=== PATIENT | male | born 1960 | race Caucasian/White ===

== ENCOUNTER 2021-03-18 08:55 | Outpatient (REF) | payer OTHER, SELFPAY ==
[2021-03-18 11:21] LABS: Glucose Urine UA NEG (NEG); Leukocyte Esterase Urine NEG (NEG); Nitrite Urine NEG (NEG); Specific Gravity - Urine 1.015 (1.005-1.025); Urine Blood NEG (NEG); Urine Ketones NEG (NEG); Urine Protein NEG (NEG-TRACE)
[2021-03-18 11:24] LABS: Appearance Urine CLEAR; Color Urine YELLOW
[2021-03-18 12:10] LABS: Alanine Aminotransferase 44 U/L (0-40); Albumin Level 4.3 g/dL (3.5-5.0); Alkaline Phosphatase 57 U/L (39-117); Anion Gap 14 (12-20); Aspartate Amino Transferase 30 U/L (5-37); Bilirubin Total 0.9 mg/dL (0.0-1.0); Blood Urea Nitrogen 19 mg/dL (9-16); Calcium 9.5 mg/dL (8.4-10.2); Carbon Dioxide 25 mmol/L (22-29); Chloride 105 mmol/L (96-108); Cholesterol 225 mg/dL; Estimated Glomerular Filt Rate > 60; Glucose Fasting 97 mg/dL (60-99); HDL Cholesterol 49 mg/dL; LDL Cholesterol Calculated 146 mg/dl; Sodium 140 mmol/L (135-145); Total Protein 7.1 g/dL (6.5-8.0); Triglycerides 151 mg/dL
[2021-03-18 12:11] LABS: Prostate Specific Antigen Scr 1.16 ng/mL (<0.05-4.0); TSH reflex Free T4 5.54 uIU/mL (0.32-4.0)
[2021-03-18 13:50] LABS: Free T4 (Free Thyroxine) 1.03 ng/dL (0.71-1.85)
== END 2021-03-18 08:56 | disposition home or self-care (01) ==
LOC: HO.HMGCLDS 08:55
PROVIDERS: PCP Nurse Practitioner Family; Visit Provider Nurse Practitioner Family
DX: Z00.00 Encounter for general adult medical examination without abnormal findings (principal); Z12.5 Encounter for screening for malignant neoplasm of prostate
CPT/HCPCS: 36415; 80053; 80061; 81003; 84153; 84439; 84443

== ENCOUNTER 2021-05-05 14:07 | Outpatient (REF) | payer OTHER, SELFPAY ==
--- NOTE | ~2021-05-05 | FL_ITS ---
EXAMINATION: XR BARIUM SWALLOW CLINICAL INFORMATION: Dysphagia. COMPARISON: None TECHNIQUE: A modified barium swallow was performed with lateral fluoroscopy with patient sitting on a stool in the presence of a speech therapist. FINDINGS: Following oral administration of thin barium and in between barium-coated puree, ground chicken, and barium-coated solid food, there is normal oral mastication with propagation of food from the oral cavity through the pharynx into the esophagus without any evidence of obstruction, narrowing or stricture. FLUOROSCOPY TIME: 1.1 minutes DOSE AREA PRODUCT: 10.990 uGy-m2 (microgray-meter squared) FL/FL barium swallow modified IMPRESSION: Unremarkable modified barium swallow. Correlate with speech therapy results.
--- NOTE | 2021-05-06 17:06 | MHC.SL.IMP ---
Date of Plan of Treatment: 05/05/21 Onset of Symptoms/Illness: 05/05/21 Date Treatment Started: 05/05/21 Admitting Diagnosis: Hypertension Left knee replacement Primary Speech & Language Diagnosis: R13.12 Oropharyngeal Phase Dysphagia Reason for Today's Visit: 78506 Modified Barium Swallow Study Pre-evaluation Dietary Consistencies: Regular Pre-evaluation Liquid Consistency: Thin Pre-evaluation Medication Administration: Whole with Liquid Medical History: Modified Barium Swallow Study Fluoroscopic Evaluation of Swallowing Function CPT Code 50778 Evaluation Year: 2020 Reason for Study: Patient reports globus sensation. Referring Physician: Ady Diego VP BUSINESS DEVELOPMENT-BC Evaluating Clinician: Charley Betancourt M.A. CCC-[employer] OPERATOR Study Number: 1 Patient Name: Edison Thornton Status: Outpatient, Ambulatory Age: 60 Gender: Male MEDICAL HISTORY: Year of Onset or Diagnosis: 2020 Comorbidities: Hypertension Left knee replacement Current (pre-evaluation) Intake/Diet: Route: PO Diet Grade: Regular Liquid Consistencies: Thin Pre-Study Functional Oral Intake Scale (FOIS): 7- Total oral intake with no restrictions Pain: None reported at time of study SUBJECTIVE: Patient is a 60 year old male who recently was seen by Ady Diego PLANER FEEDER-BC for a physical. During this physical, patient reported dysphagia, stating that when he eats food, ?It gets stuck and cannot be rinsed down with liquids.? Patient also complained of head tic ?where he bobbles his head anteriorly and posteriorly,? and of a lesion on his forehead. Subsequently, patient was ordered a modified barium swallow study, and a consult to neurology and dermatology by his PCP. Patient?s history is significant for hypertension and left knee replacement. Patient vaguely recalls having a barium swallow study ?years ago,? but was unable to recall the results. Upon chart review, patient had barium swallow on 09/04/12 which showed, ?swallowing function is normal and there is no aspiration; intermittent sliding hiatal hernia; prominent gastroesophageal reflux during water siphon test; no ulcer or stricture.? Patient denies taking medication for GERD. Upon interview, patient further described his dysphagia. He denied pain when swallowing. He described globus sensation and when asked to locate, he pointed to location of sternum. Patient reports that at times, he leaves restaurants due to this difficulty, or expectorates undigested food at the sink. Oral Motor Exam Facial Symmetry: Symmetrical Mouth Occlusion: Normal Oral-Facial Teeth Characteristics: Intact/Normal Oral-Facial Teeth Miscellaneous Observation: Oral-Facial Lip Pucker Description: Normal Oral-Facial Smile (Lips) Description: Normal Oral-Facial Puff Cheeks Description: Normal Tongue Size: Normal Tongue Frenum Length: Normal Tongue Excursion Description: Normal Tongue Range of Movement Description: Normal Tongue Speed of Movement Description: Normal Tongue Strength of Movement (against opposing pressure): Normal Tongue Movement Characteristics: Normal/Absent Oral Expression Ability: No Impairment Is patient able to manage secretions?: Yes Food and Liquid Trials: Oral Impairment: Lip Closure: 0=No labial escape Oral Impairment: Tongue Control During Bolus Hold: 0=Cohesive bolus between tongue to palatal seal Oral Impairment: Bolus Preparation/Mastication: 0=Timely and efficient chewing and mashing Oral Impairment: Bolus Transport/Lingual Motion: 2=Slowed tongue motion Oral Impairment: Oral Residue: 1=Trace residue lining oral structures Oral Impairment:Initiation of Pharyngeal Swallow: 3=Bolus head in pyriforms Pharyngeal Impairment: Soft Palate Elevation: 0=No bolus between soft palate (SP)/pharyngeal wall (PW) Pharyngeal Impairment: Laryngeal Elevation: 0=Complete superior movement of thyroid cartilage (see description) Pharyngeal Impairment: Anterior Hyoid Excursion: 0=Complete anterior movement Pharyngeal Impairment: Epiglottic Movement: 0=Complete inversion Pharyngeal Impairment: Laryngeal Vestibular Closure:: 0=Complete: no air/contrast in laryngeal vestibule Pharyngeal Impairment: Pharyngeal Stripping Wave: 0=Present: complete Pharyngeal Impairment: Pharyngeal Contraction: Did not test Pharyngeal Impairment: Pharyngoesophageal Segment Openin=Complete distension and complete duration: no obstruction of flow Pharyngeal Impairment: Tongue Base (TB) Retraction: 2=Narrow column of contrast/air between TB and posterior PW Pharyngeal Impairment: Pharyngeal Residue: 1=Trace residue within or on pharyngeal structures Pharyngeal Impairment: Esophageal Clearance Upright Position: 1=Esophageal retention Impressions and Recommendations Clinical Observations: OBJECTIVE: Time-out: performed at 02:45 Evaluation Start: 02:30; Stop: 02:40 Patient Positioning: Seated 70-90 degrees Viewing Planes: LATERAL ONLY Contrast: MBSImP? Standardized Protocol using commercially prepared, standardized Barium viscosities, including: Varibar? THIN LIQUID (40% w/v, <15 cps) , 1/2 Shortbread Cookie (1 x1 x.25 ) MBSImP ID: [id number] [facility] Results: Lip closure for intraoral bolus containment resulted in no labial escape. Tongue control during bolus hold maintained a cohesive bolus held between tongue to palate seal. Bolus preparation and mastication resulted in timely and efficient chewing and mashing. Bolus transport/lingual motion was with slowed tongue motion. Oral residue was a trace, lining oral structures. Initiation of the pharyngeal swallow occurred when the bolus head was in the pyriform sinuses. Soft palate elevation resulted in no bolus between the soft palate and the pharyngeal wall. Laryngeal elevation demonstrated complete superior movement of the thyroid cartilage with complete approximation of the arytenoids to the epiglottic petiole. Anterior hyoid excursion demonstrated complete anterior movement. Epiglottic movement resulted in complete inversion. Laryngeal vestibular closure was complete, as indicated by no air or contrast within the laryngeal vestibule at the height of the swallow. Pharyngeal stripping wave was present and complete. Pharyngeal contraction could not be determined due to logistical reasons not related to physiologic impairment. Pharyngoesophageal segment opening was completely distended for complete duration with no obstruction of bolus flow. Tongue base retraction allowed a narrow column of contrast or air between the retracted tongue base and the posterior pharyngeal wall. Pharyngeal residue was a trace within or on pharyngeal structures. Esophageal clearance in the upright position resulted in esophageal retention. Oral Impairment Score: 5 Pharyngeal Impairment Score: 2 (absence of score, component 13) Esophageal Impairment Score: 1 Laryngeal Penetration and Aspiration: Neither penetration nor aspiration was observed in today's study with Quirino Montgomery. ASSESSMENT: Clinician Assessment: Patient was accompanied to this exam by his , who assisted in providing background information. This exam was conducted by a multidisciplinary team, which included a radiologist, professor of radiology, speech-language pathologist, and director of student services clinician. Patient was seated upright at optimal 90 degree position for lateral view only. Patient was able to feed himself without any difficulty. He trialed the following liquid and solid consistencies: -5 mL thin liquid barium -individual cup sip with bolus hold thin liquid barium -consecutive cup sip thin liquid barium -pureed solid (mixture applesauce with barium paste) -ground solid (mixture chicken salad with barium paste) -regular solid (Christie Doone cookie coated in barium paste) Oral phase characterized by adequate lip closure, good tongue control, timely mastication, slowed posterior tongue motion. Trace oral residue on tongue considered to be within normal limits. Delayed pharyngeal swallow trigger. Pharyngeal phase characterized by laryngeal elevation with complete anterior hyoid movement and complete epiglottic inversion. Complete laryngeal vesibular closure. No evidence of aspiration or penetration with liquid and solid consistencies. Noted mildly reduced tongue base retraction. Trace oral residue on tongue base considered to be within normal limits. Mild esophageal retention. Liquid Intake Recommendation: Thin Liquid Intake Strategies: Unrestricted Dietary Recommendations: Regular Medication Administration: Whole with Liquid Compensatory Strategies Recommended: Sitting Upright (90 deg) Alternate Liquids/Solids Rate of Ingestion Change Supervision during eating and or drinking: None Needed Recommendation for Speech Therapy: NA:Typical Evaluation Intake Recommendations: Route: PO Diet Grade: Regular Liquid Consistencies: Thin Post-Study Functional Oral Intake Scale (FOIS): 7- Total oral intake with no restrictions No evidence of aspiration or penetration. Good oral and pharyngeal clearance. There is no indication for modified diet at this time. Further speech therapy intervention is not warranted. Patient?s complaints of globus sensation and expectoration of food is consistent with esophageal dysphagia. Given these complaints and history of GERD/hiatal hernia, recommend consult with G.I. specialist. Suggested Referrals: The patient might benefit from a referral to: Gastroenterology Therapy Recommendations: Therapy will be discontinued Prognosis for Improvement: The prognosis for the patient to meet nutritional needs by mouth is excellent based on degree of impairment Clinician - Supplemental, Miscellaneous Communication: It is important to note MBSS objective studies are snapshots in time and Patient function might vary with factors such as time of day or concomitant medical conditions. For this reason, the final treatment plan for this patient should rest with their medical care team. Additional recommendations should be considered with the totality of the Patient in mind. Thank for the opportunity to participate in the care of this patient. If you have any questions about the content of this report, please contact the [facility] at [facility]. Education: Education regarding findings from today's study and plans for therapy were provided to Patient and family/caregiver through Verbal Instruction. Understanding was expressed by the Patient and family/caregiver. Office Copy Selector Clinician/Clinical Fellow: Yes: Natalia Mock Supervisory Statement: Yes Speech Language Pathologist: Charley Betancourt M.A., CCC-[employer] OPERATOR
== END 2021-05-05 14:08 | disposition home or self-care (01) ==
LOC: HO.XRAY 14:07
PROVIDERS: PCP Nurse Practitioner Family; Visit Provider Nurse Practitioner Family
DX: R13.10 Dysphagia, unspecified (principal)
CPT/HCPCS: 74230; 92611

== ENCOUNTER 2023-08-31 05:49 | Day surgery (SDC) | payer OTHER, SELFPAY ==
[2023-08-15 13:11] VITALS: BMI 37.6
--- NOTE | 2023-08-30 12:52 | HO.ANESPROP2 ---
Documented by User: Akilah Negrete NP 08/30/23 12:52 HPI - Anesthesia Eval Consult details Narrative: 63yo M for Upper Endoscopy with Balloon Dilitation, Colonoscopy [facility] Active Problems Active Problems: All Active Problems (Updated 08/15/23 @ 13:14 by Brina Norris RN) Nasal airway abnormality (Acute) Elevated TSH (Acute) Dyslipidemia (Acute) Skin lesion (Acute) Tic (Acute) Dysphagia (Acute) Screening PSA (prostate specific antigen) (Acute) Physical exam (Acute) Past Medical History Medical History History of revision of total replacement of right knee joint HTN (hypertension) Nasal airway abnormality Tic disorder Dysphagia Dyslipidemia Surgical History Surgical History (Updated 08/15/23 @ 13:20 by Brina Norris RN) Hx of anterior cruciate ligament surgery Hx of umbilical hernia repair Hx of excision of mass Hx of bilateral inguinal hernia repair History of total bilateral knee replacement History of ankle surgery History of total replacement of left shoulder joint H/O colonoscopy Social History Social History (Updated 08/15/23 @ 13:19 by Brina Norris RN) Household Members: Spouse Housing: House Patient Tobacco Use Status: Never used Tobacco Tobacco use type: Smokeless Tobacco Are you DNR?: No Advance Directives: No Advance Directives Information Provided: Yes Recently lost weight without trying: No Nutrition Risks: No Nutritional Risk Poor oral hygiene: No service: Yes Current occupational status: retired [employer] Allergies Allergy/AdvReac Type Severity Reaction Status Date / Time bee pollen [bee stings] Allergy Severe Anaphylaxis Verified 08/15/23 13:16 Home Medications Medication Instructions Recorded Confirmed Last Taken Type ibuprofen 800 mg tablet 800 mg PO TID 03/16/21 03/16/21 08/16/23 History cetirizine 10 mg tablet (Zyrtec) 10 mg PO DAILY PRN Allergy Symptoms 08/15/23 08/15/23 Unknown History hydrochlorothiazide 25 mg tablet 25 mg PO DAILY 08/15/23 08/15/23 Unknown History Exam Height,Weight and Vital Signs: Height 5 ft 10 in Weight 118.841 kg Assessment and Plan Assessment Anesthesia Assessment: Chart Reviewed Documented by User: Cedric Stokes MD 08/31/23 07:32 [facility] Past Medical History Medical History History of revision of total replacement of right knee joint HTN (hypertension) Nasal airway abnormality Tic disorder Dysphagia Dyslipidemia Family History Family history of problems with anesthesia: No Surgical History Surgical History (Updated 08/15/23 @ 13:20 by Brina Norris RN) Hx of anterior cruciate ligament surgery Hx of umbilical hernia repair Hx of excision of mass Hx of bilateral inguinal hernia repair History of total bilateral knee replacement History of ankle surgery History of total replacement of left shoulder joint H/O colonoscopy History of Problems with Anesthesia: No Social History Social History (Updated 08/15/23 @ 13:19 by Brina Norris RN) Household Members: Spouse Housing: House Patient Tobacco Use Status: Never used Tobacco Tobacco use type: Smokeless Tobacco Are you DNR?: No Advance Directives: No Advance Directives Information Provided: Yes Recently lost weight without trying: No Nutrition Risks: No Nutritional Risk Poor oral hygiene: No service: Yes Current occupational status: retired Meds Allergies Allergy/AdvReac Type Severity Reaction Status Date / Time bee pollen [bee stings] Allergy Severe Anaphylaxis Verified 08/15/23 13:16 Home Medications Medication Instructions Recorded Confirmed Last Taken Type ibuprofen 800 mg tablet 800 mg PO TID 03/16/21 03/16/21 08/16/23 History cetirizine 10 mg tablet (Zyrtec) 10 mg PO DAILY PRN Allergy Symptoms 08/15/23 08/15/23 Unknown History hydrochlorothiazide 25 mg tablet 25 mg PO DAILY 08/15/23 08/15/23 Unknown History Exam Airway Mallampati Class: II TM Dist: >3cm Neck ROM: Full Loose/Missing/Broken Teeth: No Heart: ok Lungs: ok Assessment and Plan Assessment Anesthesia Assessment: Anesthesia Plan Discussed Final Anesthetic Review Family History of Problems with Anesthesia: No History of Problems with Anesthesia: No NPO: Yes ASA Class: III Final Preanesthetic Review: No Changes in Pt Med Stat, Meds/Allgs Chart Reviewed, Consent Obtained/Reviewed and Anes Risks/Benef Reviewed Patient Risk: Intermediate Procedure Risk: Intermediate Anesthetic Plan Anesthetic Plan: Agree w/ Assess. and Plan and TIVA Disposition: Standard PACU
[2023-08-31 05:56] VITALS: BMI 36.6
[2023-08-31] MEDS: Gentamicin Sulfate/NaCl 80 MG/100 ML PIGGYBACK 100 MG IV (06:20)
[2023-08-31 06:27] VITALS: BP 131/89; PULSE 76; RESP 18; TEMP 37.1; O2SAT 97
[2023-08-31] MEDS: Lactated Ringers 1,000 ML 100 ML IVCONT (06:34)
[2023-08-31] MEDS: Ampicillin Sodium 2 GM in 0.9 % Sodium Chloride 100 ML IV (06:53)
[2023-08-31 08:38] VITALS: BP 113/39; PULSE 69; RESP 18; TEMP 36.4; O2SAT 91
--- NOTE | 2023-08-31 08:46 | PM.OP ---
Brief Operative Note Date of Service: 08/31/23 Pre-op diagnosis: Dysphagia, screening Post-op diagnosis: other (Esophagitis, Hiatal hernia, Gastritis, Diverticulosis) Procedure: EGD with Balloon dilation 18 to 19mm and biopsies, and Colonoscopy to the cecum and TI Surgeon: Dawson Mercedes MD Anesthesia: MAC Was an Centrifugal Operator used for this Procedure?: No Estimated blood loss (mL): 2.0 Pathology: other (A. EG Junction at 37cm B. Gastric antrum) Condition: stable Disposition: PACU
[2023-08-31 08:53] VITALS: BP 97/67; PULSE 69; RESP 18; TEMP 36.4; O2SAT 94
--- NOTE | 2023-08-31 09:51 | OP_ITS ---
DATE OF SERVICE: 08/31/2023 SURGEON: Dawson Mercedes MD INDICATIONS: The patient presents for evaluation of dysphagia and colorectal cancer screening. Full consent was obtained from him for this, including risks of bleeding and perforation. PREOPERATIVE DIAGNOSIS: POSTOPERATIVE DIAGNOSIS: PROCEDURE PERFORMED: Esophagogastroduodenoscopy with balloon dilation of gastroesophageal junction and biopsies, and colonoscopy to the cecum and terminal ileum. ESTIMATED BLOOD LOSS: COMPLICATIONS: ANESTHESIA: Monitored anesthesia care. ASSISTANTS: SPECIMENS: PREOPERATIVE DIAGNOSES: Dysphagia and colorectal cancer screening. POSTOPERATIVE DIAGNOSES: Dysphagia and colorectal cancer screening, esophagitis, hiatal hernia, gastritis, diverticulosis, and internal hemorrhoids. DESCRIPTION OF PROCEDURE: The patient was placed in the left lateral decubitus position. The Olympus video gastroscope was passed in the posterior oropharynx and upper esophagus under direct vision. The scope was passed slowly to the distal esophagus. The gastroesophageal junction appeared at 37 cm. With insufflation of air, this did open and allowed easy passage of the scope into the stomach. There was a moderate-sized hiatal hernia. The scope was advanced to the pylorus and the duodenum was cannulated to the descending portion. The duodenum including the bulb appeared normal without mass or ulceration. The scope was withdrawn back to the stomach. The gastric antrum had some changes of gastritis with edema, erythema, and some friability. There were no erosions, ulceration, nor mass. There was good peristalsis. Biopsies were obtained from the antrum. The scope was retroflexed visualizing the proximal stomach carefully, which appeared to have some changes of inflammation right at the GE junction, although this appeared to be more on the esophageal portion of that. There was no mass. The scope was straightened and withdrawn back into the esophagus. Given the symptomatology, I did use a [employer] incremental balloon to dilate the gastroesophageal junction from 18 mm to 19 mm at the recommended pressure for between 30 and 60 seconds each. Post-dilation, there was really no appreciable heme noted. With insufflation of air, there definitely appeared to be some inflammatory changes at the EG junction, but without any definitive mass nor ulceration. Biopsies were obtained. The scope was then withdrawn through the remainder of the esophagus, which appeared normal. The scope was withdrawn from the patient. He was turned around for the colonoscopy. The digital rectal exam revealed no abnormalities. The Olympus video pediatric colonoscope was entered into the rectum and advanced easily to the cecum. Once in the cecum, I did identify normal-appearing cecal pouch with appendiceal orifice and a normal-appearing ileocecal valve. The terminal ileum was cannulated and appeared normal. The scope was withdrawn back in the colon. The entire cecum and ileocecal valve appeared normal. The scope was then slowly withdrawn assessing all mucosal surfaces carefully. Preparation was excellent. I did not visualize any sign of polyps, colitis, nor angiodysplasia. There was a mild amount of sigmoid diverticulosis. In the rectum, scope was retroflexed visualizing internal hemorrhoids, but no other pathology. The rectal mucosa appeared normal. The scope was straightened and withdrawn from the patient. He tolerated the procedure well and was returned to the recovery area in stable condition. IMPRESSION: 1. Reflux esophagitis. 2. Hiatal hernia. 3. Gastritis. 4. Status post balloon dilation of gastroesophageal junction. 5. Diverticulosis. 6. Internal hemorrhoids. PLAN: The results of biopsies will be checked. Given these findings, I shall start him on omeprazole 40 mg daily. He was advised not to use any aspirin and NSAIDs for at least a week, but preferably long-term. I would recommend a repeat colonoscopy in 10 years. In regard to the swallowing issues, hopefully today's dilation and initiation of omeprazole will help to decrease any component of esophageal spasm. Depending on the biopsy results and his clinical course, we may want to repeat the upper endoscopy in about 2 months and/or consider further testing with barium swallow and esophageal motility studies. MD SHAHEEN Pradhan/ROC / [id number] [facility]
== END 2023-08-31 09:15 | disposition home or self-care (01) ==
PROVIDERS: PCP Nurse Practitioner Family; Visit Provider Internal Medicine
PROC: (CPT 43249; principal; 2023-08-31 07:30)
PROC: 0DJD8ZZ Inspection of Lower Intestinal Tract, Via Natural or Artificial Opening Endoscopic (ICD-10-PCS; CPT 45378; 2023-08-31 07:30)
DX: K21.00 Gastro-esophageal reflux disease with esophagitis, without bleeding (principal); K29.60 Other gastritis without bleeding; K44.9 Diaphragmatic hernia without obstruction or gangrene; Z12.11 Encounter for screening for malignant neoplasm of colon; K57.30 Diverticulosis of large intestine without perforation or abscess without bleeding; K64.8 Other hemorrhoids; I10 Essential (primary) hypertension; E78.5 Hyperlipidemia, unspecified; R13.19 Other dysphagia; Z79.02 Long term (current) use of antithrombotics/antiplatelets; Z79.899 Other long term (current) drug therapy
CPT/HCPCS: 43249; 43239; 45378; 88305; 88313; 88342; C1726; J0290; J1580; J2704